=== PATIENT | female | born 1960 | race Caucasian/White ===

== ENCOUNTER 2018-10-06 10:17 | Emergency (ER) | payer OTHER ==
[~2018-10-06] VITALS: Ht 167.6 cm; Wt 69.5 kg
[2018-10-06 10:29] VITALS: Ht 167.6 cm; Wt 69.5 kg
--- NOTE | 2018-10-06 11:24 | ERD ---
ER Documentation Chief Complaint Chief Complaint Complains of back pain x 1 week HPI 58-year-old female, with history of fibromyalgia on gabapentin, presents to the emergency department, complaining of worsening of pain during the last week. The patient has been taking Tylenol and gabapentin with mild improvement of the symptoms. The pain is sharp, sometimes burning, 7/10, associated with depression and general malaise. ROS All systems reviewed and are negative except as per history of present illness. Medications Home Meds Active Scripts Ibuprofen* (Motrin*) 600 Mg Tab, 600 MG PO Q8, #30 TAB Prov:BETTINA WHEELER MD 10/06/18 Acetaminophen* (Tylenol*) 325 Mg Tablet, 2 TAB PO Q8 PRN for PAIN AND OR ELEVATED TEMP, #20 TAB Prov:BETTINA WHEELER MD 10/06/18 Allergies Allergies: Coded Allergies: No Known Allergy (Unverified , 10/06/18) Physical Exam Vitals Vital Signs Date Temp Pulse Resp B/P (MAP) Pulse Ox O2 O2 Flow FiO2 Time Delivery Rate 10/06/18 76 18 132/74 99 Room Air 13:42 (93) 10/06/18 97.2 101 20 149/92 99 10:29 (111) Physical Exam Const: Mild distress due to pain Head: Atraumatic Eyes: Normal Conjunctiva ENT: Normal External Ears, Nose and Mouth. Neck: Full range of motion. No meningismus. Resp: Clear to auscultation bilaterally Cardio: Regular rate and rhythm, no murmurs Abd: Soft, non tender, non distended. Normal bowel sounds Skin: No petechiae or rashes Back: No midline or flank tenderness Ext: No cyanosis, or edema Neur: Awake and alert Psych: Normal Mood and Affect Result Diagram: 10/06/18 1206 10/06/18 1206 Results 24 hrs Laboratory Tests Test 10/06/18 12:06 10/06/18 12:47 White Blood Count 6.6 10^3/ul Red Blood Count 3.88 10^6/ul Hemoglobin 12.3 g/dl Hematocrit 37.1 % Mean Corpuscular Volume 95.6 fl Mean Corpuscular Hemoglobin 31.7 pg Mean Corpuscular Hemoglobin Concent 33.2 g/dl Red Cell Distribution Width 11.3 % Platelet Count 342 10^3/UL Mean Platelet Volume 11.2 fl Immature Granulocytes % 0.300 % Neutrophils % 53.5 % Lymphocytes % 37.7 % Monocytes % 6.8 % Eosinophils % 1.5 % Basophils % 0.2 % Nucleated Red Blood Cells % 0.0 /100WBC Immature Granulocytes # 0.020 10^3/ul Neutrophils # 3.6 10^3/ul Lymphocytes # 2.5 10^3/ul Monocytes # 0.5 10^3/ul Eosinophils # 0.1 10^3/ul Basophils # 0.0 10^3/ul Nucleated Red Blood Cells # 0.0 10^3/ul Sodium Level 143 mmol/L Potassium Level 3.8 mmol/L Chloride Level 106 mmol/L Carbon Dioxide Level 28 mmol/L Anion Gap 9 Blood Urea Nitrogen 12 mg/dl Creatinine 0.38 mg/dl Est Glomerular Filtrat Rate mL/min > 60 mL/min Glucose Level 128 mg/dl Calcium Level 9.7 mg/dl Urine Color YELLOW Urine Clarity SLIGHTLY CLOUDY Urine pH 6.0 Urine Specific [place] 1.021 Urine Ketones NEGATIVE mg/dL Urine Nitrite NEGATIVE mg/dL Urine Bilirubin NEGATIVE mg/dL Urine Urobilinogen 1+ mg/dL Urine Leukocyte Esterase NEGATIVE Melissa/ul Urine Microscopic RBC 1 /HPF Urine Microscopic WBC 2 /HPF Urine Squamous Epithelial Cells FEW /HPF Urine Bacteria FEW /HPF Urine Mucus MANY /HPF Urine Hemoglobin NEGATIVE mg/dL Urine Glucose NEGATIVE mg/dL Urine Total Protein 1+ mg/dl Current Medications Medications Dose Sig/Leta Start Time Status Last (Trade) Ordered Route PRN Stop Time Admin Dose Reason Admin Ketorolac 30 mg ONCE STAT 10/06/18 DC 10/06/18 Tromethamine IM 11:52 10/06/18 12:05 (Toradol) 12:00 Procedures/MDM Vital signs stable; physical exam unremarkable. Fibromyalgia, chronic pain, differential diagnosis includes arthritis, thyroid disease. Less likely acute infectious process. During the ED course the patient remained stable, no new complaints. I strongly recommended the use of nonpharmacologic treatment with self- management strategies, behavioral treatments, physical therapy as well as non control pharmacotherapy like hydroxyzine. Follow up with the primary care provider in the next 48h has been recommended. Instructions explained and given directly by me to the patient with acknowledgment and demonstrated understanding. Disclaimer: Inadvertent spelling and grammatical errors are likely due to EHR/dictation software use and do not reflect on the overall quality of patient care. Also, please note that the electronic time recorded on this note does not necessarily reflect the actual time of the patient encounter. Departure Diagnosis: Primary Impression: Fibromyalgia Condition: Stable Additional Instructions: Muchas dilcia por [facility] para tee servicio. Esperamos que en tee visita a la janay de emergencia tee problema medico haya sido solucionado y que se sienta mucho mejor. Para estar seguros que tee mejoria sigue en proceso, le pedimos el favor de hacer paulina herson de seguimiento medico con tee doctor primario en los proximos 2-4 carpio. Lleve con usted estos documentos y las medicinas recetadas. Si abena sintomas empeoran, NO SE ESPERE, por favor regrese a janay de emergencia INMEDIATAMENTE. En yuko que usted no tenga un mdico de atencin primaria: Llame al mdico o clnica comunitaria de referencia que aparece abajo elinor las horas de consultorio para hacer paulina herson para que le vean. CLINICAS: [facility] [phone] [facility] [facility] [phone] [facility]. [facility] [[email or web address] [phone] [facility] [phone] [facility]. [place] [id number] [phone] [facility]. [phone] BETTINA GARCIA MD Oct 06, 2018 11:24
[2018-10-06] MEDS ORDERED: KETOROLAC 30 MG INJ IM STA (11:52)
[2018-10-06] MEDS ORDERED: ACET325T33 PO (13:31)
[2018-10-06] MEDS ORDERED: IBUP-1542 PO (13:31)
[2018-10-06 13:42] VITALS: BP 132/74; PULSE 76; RESP 18
== END 2018-10-06 13:44 | disposition home or self-care (01) ==
LOC: FTE 10:17
DX: M79.7 Fibromyalgia (principal)
CPT/HCPCS: 80048; 81001; 85025; 96372; J1885; Z7502